=== PATIENT | female | born 1975 | race Caucasian/White ===

== ENCOUNTER 2017-03-16 15:03 | Inpatient (IN) | payer SELFPAY ==
[2017-03-16] MEDS ORDERED: TORADOL 30 MG VIAL IVP ONE (15:52)
[2017-03-16] MEDS ORDERED: ZOFRAN INJ 4 MG VIAL IVP ONE (15:52)
[2017-03-16] MEDS ORDERED: NS 1000 ML 1,000 ML IV ONE (15:52)
--- NOTE | 2017-03-16 15:54 | DR.GENAD ---
HPI - PCP Primary Care Physician: DINA - Complaint/Symptoms Chief Complaint Doctors Comments: ABSCESS UNDER LEFT AXILLA. ON CLINDAMYCIN AND DOXYCYLINE. NOW RUNNING FEVER, PATIENT HAVING CHILLS AND BODY ACHES. ALLERGIC TO BACTRIM. Chief Complaint:: " I HAVE THESE KNOTS COMING UP UNDER MY ARMS AND IT'S SPREADING!" Self Treatment fo Chief Complaint: CLINDAMYCIN - Nurses notes reviewed Nurses Notes Review: Yes - Source History Provided: Patient - Mode of Arrival Mode of Arrival: Ambulatory - Timing Onset of Chief Complaint: 03/08/17 Came on: Suddenly - Duration Duration: Constant Duration: Days - Severity Severity: Moderate PMH - PMH Past Medical History: Yes Past Medical History: Anemia, Hypertension Past Surgical History: Yes Surgical History: , Cholecystectomy, Hysterectomy Past Surgical History Comment: BACK SURGERY - Family History History of Family Medical Conditions: Yes Family Medical History: Diabetes Mellitus, [place], Coronary Artery Disease, Hypertension - Social History Does patient currently use any type of tobacco product: Yes Have you used tobacco products in the last 12 months: Yes Type of Tobacco Use: Cigarettes How many years tobacco product used: 4 Does any household member use tobacco: Yes Alcohol Use: Occasionally Do you use any recreational Drugs:: No Lives With: Family Lives Where: Home - infectious screening In the last 2 months have you had wt loss of >10#?: NO Have you had fever, night sweats or hemotysis?: No Have you traveled outside the country in the last 6 months?: No ROS - Review of Systems Constitutional: Chills, Fever, Weakness, Fatigue. negative: Diaphoresis, Loss of Appetite Eyes: No Symptoms Reported. negative: Eye Pain, Discharge ENTM: No Symptoms Reported. negative: Ear Pain, Nose Discharge, Nose Congestion , Throat Pain Respiratoy: Non-Productive Cough. negative: Short of Breath, Wheezing, Hemoptysis Cardiovascular: negative: Chest Pain Gastrointestinal/Abdominal: Abdominal Pain, Diarrhea, Nausea, Vomiting Neurological: Headache, Weakness, Dizziness Musculoskeletal: Muscle Pain Integumentary: Lesions (UNDER ARM PIT LT.), Lumps Hematologic/Lymphatic: No Symptoms Reported Endocrine: No Symptoms Reported All Other Systems: Reviewed and Negative PE - Vital Signs Vitals: Temperature 98.4 F Pulse Rate 110 Respiratory Rate 20 Blood Pressure [Right Arm] 139/99 Blood Pressure 123/87 O2 Sat by Pulse Oximetry 99 - General Limitations: No Limitations General Appearance: Alert - Head Head Exam: Normal Inspection - Eyes Eye exam: Normal Appearance - ENT ENT Exam: Normal External Ear Exam External Ear Exam: Normal External Inspection TM/Canal Exam: Bilateral Normal Nose Exam: Normal Nose Exam Mouth Exam: Normal Inspection Throat Exam: Normal Inspection - Neck Neck Exam: Trachea Midline - Chest Chest Inspection: Symmetric Chest Wall Rise - Respiratory Respiratory Exam: Normal Lung Sounds Bilat Respiratory Exam: Bilateral Clear to Auscultation - Cardiovascular Cardiovascular Exam: Regular Rate, Normal Rhythm, Normal Heart Sounds - Abdominal Exam Abdominal Exam: Normal Bowel Sounds, Soft. negative: Tenderness - Extremities Extremities Exam: Other (LT AXILLA WITH ABSCESSES THAT IS TENDER. REDNESS NOTED ALSO.) Course - Treatment Treatment: SEE ORDERS - Consultation Consultation Comments: DISCUSS PATIENT WITH DR. LEWIS. HE WILL ADMIT PATIENT. - Education/Counseling Education/Counseling: Patient, Family, Education Educated On: Treatment, Needs for Follow Up ROR - Labs Reviewed Laboratory Results Reviewed?: Yes Result Diagrams: 03/17/17 03:25 03/17/17 03:25 - Diagnosis Discharge Problem: Abscess Cellulitis Qualifiers: Site of cellulitis: extremity Site of cellulitis of extremity: axilla Laterality: left Qualified Code(s): L03.112 - Cellulitis of left axilla - Discharge Plan Disposition: ADMITTED INPATIENT Condition: Good - Follow ups/Referrals - Instructions
[2017-03-16] MEDS ORDERED: NS 1000 ML 1,000 ML ONE ×2 (16:30→18:22)
[2017-03-16] MEDS ORDERED: ZOFRAN INJ 4 MG VIAL ONE (16:30)
[2017-03-16] MEDS ORDERED: TORADOL 30 MG VIAL ONE (16:31)
[2017-03-16 16:35] LABS: BASOPHILS # (AUTO) 0.1 X10^3/uL (0.0-0.1); BASOPHILS % (AUTO) 0.7 % (0.2-1.0); EOSINOPHILS # (AUTO) 0.1 x10^3/uL (0.0-0.2); EOSINOPHILS % (AUTO) 0.7 % (0.9-2.9); HEMATOCRIT 32.5 % (36.0-47.0); HEMOGLOBIN 10.7 g/dL (12.0-16.0); LYMPHOCYTES # (AUTO) 2.6 X10^3/uL (1.3-2.9); LYMPHOCYTES % (AUTO) 25.5 % (21.0-51.0); MEAN CORPUSCULAR HEMOGLOBIN 22.3 pg (27.0-34.0); MEAN CORPUSCULAR HGB CONC 32.8 g/dL (33.0-35.0); MEAN CORPUSCULAR VOLUME 67.8 fL (80.0-100.0); MEAN PLATELET VOLUME 7.6 fL (7.4-11.0); MONOCYTES # (AUTO) 0.9 x10^3/uL (0.3-0.8); MONOCYTES % (AUTO) 8.9 % (0.0-13.0); NEUTROPHILS # (AUTO) 6.4 x10^3/uL (2.2-4.8); NEUTROPHILS % (AUTO) 64.2 % (42.0-75.0); PLATELET COUNT 387 X10^3/uL (150.0-450.0); RED CELL DISTRIBUTION WIDTH 18.3 % (11.6-16.5)
[2017-03-16 16:42] LABS: LACTIC ACID 1.5 mmol/L (0.4-2.0)
[2017-03-16 16:45] LABS: HYPOCHROMASIA 1+; MICROCYTOSIS 1+; PLATELET MORPHOLOGY COMMENT NORMAL (NORMAL)
[2017-03-16 17:27] LABS: ALANINE AMINOTRANSFERASE 21 Units/L (12-78); ALBUMIN 3.7 g/dL (3.4-5.0); ALKALINE PHOSPHATASE 82 Units/L (46-116); ASPARTATE AMINO TRANSFERASE 15 Units/L (15-37); BLOOD UREA NITROGEN 7 mg/dL (7-18); CALCIUM 9.7 mg/dL (8.5-10.1); CARBON DIOXIDE 25.6 mmol/L (21-32); CHLORIDE 89 mmol/L (98-107); CREATININE 0.75 mg/dL (0.55-1.02); TOTAL PROTEIN 7.9 g/dL (6.4-8.2); eGFR BLACK RACES > 60 (>60); eGFR NON BLACK RACES > 60 (>60)
[2017-03-16 17:33] LABS: SODIUM 123 mmol/L (136-145)
[2017-03-16] MEDS ORDERED: MORPHINE SULFATE INJ 4 MG IVP ONE (17:43)
[2017-03-16] MEDS ORDERED: MORPHINE SULFATE INJ 4 MG ONE (17:54)
[2017-03-16] MEDS ORDERED: MOTRIN TAB 600 MG PO PRN (18:57)
[2017-03-16] MEDS ORDERED: PHENERGAN TAB 25 MG PO PRN (18:57)
[2017-03-16] MEDS ORDERED: TORADOL 30 MG VIAL IVP PRN (19:01)
[2017-03-16] MEDS: VANCOMYCIN 1 GM PREMIX (ADDVANTAGE) 250 ML IV SCH (21:38)
[2017-03-16] MEDS: ZOSYN VIAL 3.375 GM 3.375 GM in NS 100 ML IV + SPIKE MINIBAG* 100 ML IV SCH (21:38)
[2017-03-16] MEDS: NICODERM PATCH 21 MG/24 HR TD SCH (22:31)
[2017-03-16] MEDS: NS + KCL 40 MEQ/L 1,000 ML IV SCH (23:40)
[2017-03-16] MEDS ORDERED: NS 1000 ML 1,000 ML IV SCH (23:45)
[2017-03-17] MEDS: MORPHINE SULFATE INJ 4 MG IVP PRN ×4 (00:12→23:39)
[2017-03-17] MEDS: ZOFRAN INJ 4 MG VIAL IVP PRN ×4 (00:13→23:39)
[2017-03-17] MEDS ORDERED: K-RIDER 10 MEQ/NS 100 ML 10 MEQ/100 ML BAG IV PRN (02:26)
[2017-03-17] MEDS ORDERED: POTASSIUM CHLORIDE LIQ 20 MEQ UDC PO PRN (02:26)
[2017-03-17] MEDS ORDERED: K-LYTE EFFERVESCENT PO PRN (02:26)
[2017-03-17] MEDS ORDERED: K-DUR TAB 20 MEQ PO PRN (02:26)
[2017-03-17 05:18] LABS: ALANINE AMINOTRANSFERASE 15 Units/L (12-78); ALBUMIN 2.8 g/dL (3.4-5.0); ALKALINE PHOSPHATASE 62 Units/L (46-116); ASPARTATE AMINO TRANSFERASE 11 Units/L (15-37); BLOOD UREA NITROGEN 6 mg/dL (7-18); CALCIUM 8.8 mg/dL (8.5-10.1); CHLORIDE 96 mmol/L (98-107); COR CA(FOR HYPOALB) 9.8 mg/dL (8.5-10.1); CREATININE 0.65 mg/dL (0.55-1.02); SODIUM 129 mmol/L (136-145); TOTAL PROTEIN 6.2 g/dL (6.4-8.2); eGFR BLACK RACES > 60 (>60); eGFR NON BLACK RACES > 60 (>60)
[2017-03-17 05:20] LABS: BASOPHILS % (AUTO) 0.7 % (0.2-1.0); EOSINOPHILS # (AUTO) 0.2 x10^3/uL (0.0-0.2); EOSINOPHILS % (AUTO) 2.8 % (0.9-2.9); HEMATOCRIT 27.5 % (36.0-47.0); HEMOGLOBIN 9.1 g/dL (12.0-16.0); LYMPHOCYTES # (AUTO) 2.4 X10^3/uL (1.3-2.9); LYMPHOCYTES % (AUTO) 38.5 % (21.0-51.0); MEAN CORPUSCULAR HEMOGLOBIN 22.7 pg (27.0-34.0); MEAN CORPUSCULAR HGB CONC 33.2 g/dL (33.0-35.0); MEAN CORPUSCULAR VOLUME 68.5 fL (80.0-100.0); MONOCYTES # (AUTO) 0.6 x10^3/uL (0.3-0.8); MONOCYTES % (AUTO) 10.3 % (0.0-13.0); NEUTROPHILS # (AUTO) 2.9 x10^3/uL (2.2-4.8); NEUTROPHILS % (AUTO) 47.7 % (42.0-75.0); PLATELET COUNT 288 X10^3/uL (150.0-450.0); RED BLOOD COUNT 4.02 X10^6/uL (3.5-5.4); RED CELL DISTRIBUTION WIDTH 18.7 % (11.6-16.5); WHITE BLOOD COUNT 6.1 X10^3/uL (3.6-10.0)
[2017-03-17] MEDS: ZOSYN VIAL 3.375 GM 3.375 GM in NS 100 ML IV + SPIKE MINIBAG* 100 ML IV SCH ×3 (05:23→22:22)
[2017-03-17 05:50] LABS: HYPOCHROMASIA 1+; PLATELET MORPHOLOGY COMMENT NORMAL (NORMAL)
[2017-03-17 05:51] LABS: MICROCYTOSIS 1+
[2017-03-17] MEDS: NICODERM PATCH 21 MG/24 HR TD SCH (09:23)
[2017-03-17] MEDS: VANCOMYCIN 1 GM PREMIX (ADDVANTAGE) 250 ML IV SCH ×2 (09:23→20:54)
[2017-03-17 10:00] VITALS: BMI 30.4
[2017-03-17] MEDS: NS + KCL 40 MEQ/L 1,000 ML IV SCH (18:27)
[2017-03-17] MEDS: VISTARIL PO PRN (20:53)
[2017-03-18] MEDS: NS 1000 ML 1,000 ML IV SCH ×3 (04:19→21:17)
[2017-03-18 05:21] LABS: BASOPHILS % (AUTO) 0.7 % (0.2-1.0); EOSINOPHILS # (AUTO) 0.1 x10^3/uL (0.0-0.2); HEMATOCRIT 26.4 % (36.0-47.0); HEMOGLOBIN 8.6 g/dL (12.0-16.0); LYMPHOCYTES # (AUTO) 1.8 X10^3/uL (1.3-2.9); LYMPHOCYTES % (AUTO) 40.8 % (21.0-51.0); MEAN CORPUSCULAR HEMOGLOBIN 22.6 pg (27.0-34.0); MEAN CORPUSCULAR HGB CONC 32.7 g/dL (33.0-35.0); MEAN CORPUSCULAR VOLUME 69.1 fL (80.0-100.0); MEAN PLATELET VOLUME 7.9 fL (7.4-11.0); MONOCYTES # (AUTO) 0.5 x10^3/uL (0.3-0.8); MONOCYTES % (AUTO) 10.3 % (0.0-13.0); NEUTROPHILS % (AUTO) 45.2 % (42.0-75.0); PLATELET COUNT 264 X10^3/uL (150.0-450.0); RED BLOOD COUNT 3.83 X10^6/uL (3.5-5.4); RED CELL DISTRIBUTION WIDTH 18.9 % (11.6-16.5); WHITE BLOOD COUNT 4.5 X10^3/uL (3.6-10.0)
[2017-03-18 05:23] LABS: ALANINE AMINOTRANSFERASE 15 Units/L (12-78); ALBUMIN 2.7 g/dL (3.4-5.0); ALKALINE PHOSPHATASE 56 Units/L (46-116); ASPARTATE AMINO TRANSFERASE 9 Units/L (15-37); BLOOD UREA NITROGEN 8 mg/dL (7-18); CALCIUM 8.9 mg/dL (8.5-10.1); CARBON DIOXIDE 29.5 mmol/L (21-32); CHLORIDE 106 mmol/L (98-107); COR CA(FOR HYPOALB) 9.9 mg/dL (8.5-10.1); SODIUM 138 mmol/L (136-145); TOTAL PROTEIN 6.2 g/dL (6.4-8.2); eGFR BLACK RACES > 60 (>60); eGFR NON BLACK RACES > 60 (>60)
[2017-03-18] MEDS: ZOSYN VIAL 3.375 GM 3.375 GM in NS 100 ML IV + SPIKE MINIBAG* 100 ML IV SCH (05:50)
[2017-03-18] MEDS: MORPHINE SULFATE INJ 4 MG IVP PRN ×3 (05:54→18:03)
[2017-03-18 06:48] LABS: HYPOCHROMASIA 1+; MICROCYTOSIS 1+; PLATELET MORPHOLOGY COMMENT NORMAL (NORMAL)
[2017-03-18 08:47] LABS: CREATININE 0.8 mg/dL (0.55-1.02); VANCOMYCIN,TROUGH 6.6 ug/mL (15-20)
[2017-03-18] MEDS: VANCOMYCIN 1 GM PREMIX (ADDVANTAGE) 250 ML IV SCH ×3 (09:09→21:14)
[2017-03-18] MEDS: NICODERM PATCH 21 MG/24 HR TD SCH (09:09)
[2017-03-18] MEDS: VISTARIL PO PRN ×2 (09:12→21:17)
[2017-03-18] MEDS: ZOFRAN INJ 4 MG VIAL IVP PRN (11:54)
[2017-03-18] MEDS: XANAX PO PRN (14:06)
[2017-03-18 18:03] LABS: CRYPTOSPORIDIUM PARVUM ANTIGEN NEGATIVE (NEGATIVE); GIARDIA LAMBLIA ANTIGEN NEGATIVE (NEGATIVE)
[2017-03-19] MEDS ORDERED: ULTRAM PO PRN (00:34)
[2017-03-19] MEDS: MORPHINE SULFATE INJ 4 MG IVP PRN ×3 (00:41→15:11)
[2017-03-19] MEDS: NS 1000 ML 1,000 ML IV SCH (05:21)
[2017-03-19] MEDS: XANAX PO PRN (05:21)
[2017-03-19] MEDS: NEURONTIN TAB 600 MG PO SCH ×2 (05:21→14:12)
[2017-03-19] MEDS: VANCOMYCIN 1 GM PREMIX (ADDVANTAGE) 250 ML IV SCH ×2 (05:21→14:13)
[2017-03-19 05:34] LABS: BASOPHILS % (AUTO) 0.8 % (0.2-1.0); EOSINOPHILS # (AUTO) 0.1 x10^3/uL (0.0-0.2); EOSINOPHILS % (AUTO) 2.5 % (0.9-2.9); HEMATOCRIT 27.4 % (36.0-47.0); HEMOGLOBIN 8.9 g/dL (12.0-16.0); LYMPHOCYTES # (AUTO) 1.8 X10^3/uL (1.3-2.9); LYMPHOCYTES % (AUTO) 42.9 % (21.0-51.0); MEAN CORPUSCULAR HEMOGLOBIN 22.5 pg (27.0-34.0); MEAN CORPUSCULAR HGB CONC 32.5 g/dL (33.0-35.0); MEAN CORPUSCULAR VOLUME 69.3 fL (80.0-100.0); MEAN PLATELET VOLUME 7.8 fL (7.4-11.0); MONOCYTES # (AUTO) 0.4 x10^3/uL (0.3-0.8); MONOCYTES % (AUTO) 8.8 % (0.0-13.0); NEUTROPHILS # (AUTO) 1.9 x10^3/uL (2.2-4.8); PLATELET COUNT 286 X10^3/uL (150.0-450.0); RED BLOOD COUNT 3.96 X10^6/uL (3.5-5.4); RED CELL DISTRIBUTION WIDTH 18.5 % (11.6-16.5); WHITE BLOOD COUNT 4.3 X10^3/uL (3.6-10.0)
[2017-03-19 06:23] LABS: ALANINE AMINOTRANSFERASE 18 Units/L (12-78); ALBUMIN 2.8 g/dL (3.4-5.0); ALKALINE PHOSPHATASE 55 Units/L (46-116); ASPARTATE AMINO TRANSFERASE 13 Units/L (15-37); BLOOD UREA NITROGEN 5 mg/dL (7-18); CARBON DIOXIDE 28.2 mmol/L (21-32); CHLORIDE 105 mmol/L (98-107); SODIUM 138 mmol/L (136-145); TOTAL PROTEIN 6.3 g/dL (6.4-8.2); eGFR BLACK RACES > 60 (>60); eGFR NON BLACK RACES > 60 (>60)
[2017-03-19 06:45] LABS: HYPOCHROMASIA 1+; MICROCYTOSIS 1+; PLATELET MORPHOLOGY COMMENT NORMAL (NORMAL)
[2017-03-19] MEDS ORDERED: STERILE WATER IRRIGATION IR ONE (08:38)
[2017-03-19] MEDS ORDERED: ZESTRIL TAB 20 MG ONE (08:42)
[2017-03-19] MEDS: NICODERM PATCH 21 MG/24 HR TD SCH (08:51)
[2017-03-19] MEDS ORDERED: ZESTRIL TAB 20 MG PO SCH (09:00)
[2017-03-19] MEDS ORDERED: PATIENT'S HOME MEDICATION (Lisinopril/Hydrochlorothiazide [Lisinopril-Hctz 20-12.5 Mg Tab] PO SCH (09:00)
[2017-03-19] MEDS ORDERED: LYRICA CAP 150 MG PO SCH (09:00)
[2017-03-19] MEDS ORDERED: HYDROCHLOROTHIAZIDE 12.5 MG CAP PO SCH (09:00)
[2017-03-19] MEDS ORDERED: NORCO 5/325 MG TAB PO PRN (09:02)
[2017-03-19] MEDS: ZOFRAN INJ 4 MG VIAL IVP PRN ×2 (09:15→15:11)
[2017-03-19 13:38] VITALS: BP 135/83
[2017-03-19 14:53] LABS: CREATININE 0.72 mg/dL (0.55-1.02); VANCOMYCIN,TROUGH 12.3 ug/mL (15-20)
--- NOTE | 2017-03-20 08:50 | OR.GENERIC ---
Post-Op Note Generic - Post-Op Note Operative Report: Date of Operation: March 19, 2017 Pre-Operative Diagnosis: Left axillary abscess. Post-Operative Diagnosis: Left axillary abscess. Procedure: Incision and drainage of left axillary abscess (simple). Surgeon: Miguel Healy MD Anesthesia: Local. Specimen: None. Estimated blood loss: Minimal Complications: None Summary: The patient is a 41 year old female who presented with a left axillary abscess. The patient was admitted to the hospital for IV antibiotics and surgery consulted. The patient was offered incision and drainage. The risk and benefits of the procedure including difficulty with anesthesia, bleeding, infection, scar formation, delayed healing, as well as recurrence were discussed with the patient. The patient understood these risks and requested the procedure. On March 19, 2017, the patient was positioned in the hospital room. A time out was performed verifying the patient and the procedure. The left axillae was prepped with betadine and draped in the usual fashion. Local anesthetic was infiltrated around the areas of induration (three regions). A small core of skin was removed sharply at each site. The abscess cavities were entered bluntly. Minimal purulent drainage was seen. All loculations were disrupted bluntly. Next, the wounds were packed with Iodoform. A sterile dressing was placed. The patient tolerated the procedure. There were no complications. All counts were correct.
== END 2017-03-19 16:15 | disposition home or self-care (01) | DRG 603 ==
LOC: ER 15:17 → MED/SURG 18:55
PROVIDERS: ADMIT Internal Medicine; ATTEND Internal Medicine
PROC: 0H9CXZZ Drainage of Left Upper Arm Skin, External Approach (ICD-10-PCS; principal; 2017-03-19)
DX: L02.412 Cutaneous abscess of left axilla (principal); B95.62 Methicillin resistant Staphylococcus aureus infection as the cause of diseases classified elsewhere; E87.0 Hyperosmolality and hypernatremia; E87.5 Hyperkalemia; F41.9 Anxiety disorder, unspecified; R10.13 Epigastric pain; R19.7 Diarrhea, unspecified
CPT/HCPCS: 36415; 80053; 80202; 82270; 82565; 83605; 83735; 84132; 84295; 85025; 86140; 87040; 87045; 87070; 87077; 87186; 87205; 87328; 87329; 87336; 87427; 87493; 87899; 96365; 96367; 96374; 96375; 99284; A4217; A4222; Q0169; Q0177; J1885; J2270; J2405; J2543; J3370

== ENCOUNTER 2017-04-14 14:00 | Emergency (ER) | payer SELFPAY ==
[2017-04-14 14:08] VITALS: BP 155/101; BMI 30.7
[2017-04-14] MEDS ORDERED: ZOFRAN INJ 4 MG VIAL IVP ONE (14:36)
[2017-04-14] MEDS ORDERED: NS 1000 ML 1,000 ML IV ONE (14:36)
[2017-04-14] MEDS ORDERED: CLEOCIN 600 MG IV PREMIX 600 MG/50 ML BAG IV ONE (14:37)
[2017-04-14] MEDS ORDERED: CLEOCIN 300 MG IV PREMIX 300 MG/50 ML BAG IV ONE (14:37)
[2017-04-14] MEDS ORDERED: CLEOCIN 300 MG IV PREMIX 600 MG/100 ML BAG IV ONE (14:38)
[2017-04-14] MEDS ORDERED: CLEOCIN VIAL 600 MG 300 MG in D5W 50 ML IV 50 ML IV ONE (14:39)
[2017-04-14] MEDS ORDERED: TORADOL 30 MG VIAL IVP ONE (14:41)
--- NOTE | 2017-04-14 14:42 | DR.GENAD ---
HPI - PCP Primary Care Physician: REBECCA ARCADIA - Complaint/Symptoms Chief Complaint:: PT WAS ADMITTED 3 WEEKS AGO FOR MRSA ,,, PT PRESENTS WITH A ? ABCESS TO HER LEFT POSTERIOR THIGH... AND PAIN THAT RADIATES DOWN HER LEG UP TO HER BACK.. PT STATES THERE I AN AREA THE SIZE OF A BASEBALL... BUT, U CANT SEE IT ONLY FEEL IT.'.. Self Treatment fo Chief Complaint: PT STATES IT STARTED OUT SMALL AND IT GOT BIGGER.. - Source History Provided: Patient - Mode of Arrival Mode of Arrival: Ambulatory - Timing Onset of Chief Complaint: 04/11/17 PMH - PMH Past Medical History: Yes Past Medical History: Anemia, Hypertension Past Medical History Comment: FIBRO, Past Surgical History: Yes Surgical History: , Cholecystectomy, Hysterectomy Past Surgical History Comment: GASTRIC BYPASS - Family History History of Family Medical Conditions: Yes Family Medical History: Diabetes Mellitus, [place], Coronary Artery Disease, Hypertension - Social History Does patient currently use any type of tobacco product: Yes Have you used tobacco products in the last 12 months: Yes Type of Tobacco Use: Cigarettes How many years tobacco product used: 4 Does any household member use tobacco: No Alcohol Use: None Do you use any recreational Drugs:: No Lives With: Alone, Family - infectious screening In the last 2 months have you had wt loss of >10#?: NO Have you had fever, night sweats or hemotysis?: No Have you traveled outside the country in the last 6 months?: No Isolation: Standard ROS - Review of Systems Constitutional: negative: Diaphoresis Eyes: No Symptoms Reported ENTM: No Symptoms Reported Respiratoy: No Symptoms Reported Cardiovascular: No Symptoms Reported Gastrointestinal/Abdominal: No Symptoms Reported Genitourinary: No Symptoms Reported Neurological: No Symptoms Reported Musculoskeletal: No Symptoms Reported Integumentary: Change in Color (Left lateral gluteal area centrall with a punctum central core~3cm and a large superficial area of erythema) Hematologic/Lymphatic: No Symptoms Reported Endocrine: No Symptoms Reported Psychiatric: No Symptoms Reported All Other Systems: Reviewed and Negative PE - Vital Signs Vitals: Temperature 99.9 F Pulse Rate 102 Respiratory Rate 22 Blood Pressure [Left Arm] 152/100 Blood Pressure [Right Arm] 135/83 Blood Pressure 155/101 O2 Sat by Pulse Oximetry 99 - General Limitations: No Limitations General Appearance: Alert, In No Apparent Distress - Head Head Exam: Normal Inspection, Atraumatic - Eyes Eye exam: Normal Appearance, PERRL, EOMI - ENT ENT Exam: Normal Exam External Ear Exam: Normal External Inspection TM/Canal Exam: Bilateral Normal Nose Exam: Normal Nose Exam Mouth Exam: Normal Inspection Throat Exam: Normal Inspection - Neck Neck Exam: Normal Inspection, Full ROM - Chest Chest Inspection: Normal Inspection - Respiratory Respiratory Exam: Normal Lung Sounds Bilat Respiratory Exam: Bilateral Clear to Auscultation - Cardiovascular Cardiovascular Exam: Regular Rate - Abdominal Exam Abdominal Exam: Normal Inspection Abdominal Tenderness: RLQ - Extremities Extremities Exam: Tenderness (Left lateral hip with a large area oc superficial cellulitis and a central core of 3cm firm, tender) - Back Back Exam: Normal Inspection Course - Treatment Treatment: Parenteral clindymycin 900mg - Reevaluation 1st: Improved ROR - Labs Reviewed Laboratory Results Reviewed?: Yes (Hypokalemia,Hyponatremia) Result Diagrams: 04/14/17 14:47 04/14/17 14:47 Laboratory: WBC 11.0 X10^3/uL (3.6-10.0) H 04/14/17 14:47 RBC 4.45 X10^6/uL (3.5-5.4) 04/14/17 14:47 Hgb 9.8 g/dL (12.0-16.0) L 04/14/17 14:47 Hct 30.5 % (36.0-47.0) L 04/14/17 14:47 MCV 68.6 fL (80.0-100.0) L 04/14/17 14:47 MCH 22.1 pg (27.0-34.0) L 04/14/17 14:47 MCHC 32.2 g/dL (33.0-35.0) L 04/14/17 14:47 RDW 17.3 % (11.6-16.5) H 04/14/17 14:47 Plt Count 321 X10^3/uL (150.0-450.0) 04/14/17 14:47 Plt Count Comment Adequate (ADEQUATE) 04/14/17 14:47 MPV 7.8 fL (7.4-11.0) 04/14/17 14:47 Neut % 78.0 % (42.0-75.0) H 04/14/17 14:47 Lymph % 13.2 % (21.0-51.0) L 04/14/17 14:47 Blair % 7.8 % (0.0-13.0) 04/14/17 14:47 Eos % 0.6 % (0.9-2.9) L 04/14/17 14:47 Baso % 0.4 % (0.2-1.0) 04/14/17 14:47 Neut # 8.6 x10^3/uL (2.2-4.8) H 04/14/17 14:47 Lymph # 1.5 X10^3/uL (1.3-2.9) 04/14/17 14:47 Blair # 0.9 x10^3/uL (0.3-0.8) H 04/14/17 14:47 Eos # 0.1 x10^3/uL (0.0-0.2) 04/14/17 14:47 Baso # 0.0 X10^3/uL (0.0-0.1) 04/14/17 14:47 Absolute Nucleated RBC 0.0 /100WBC 04/14/17 14:47 Plt Morphology Comment Normal (NORMAL) 04/14/17 14:47 RBC Morphology Abnormal (NORMAL) A 04/14/17 14:47 Hypochromasia 1+ A 04/14/17 14:47 Microcytosis 1+ A 04/14/17 14:47 Sodium 133 mmol/L (136-145) L 04/14/17 14:47 Corrected Sodium TNP 04/14/17 14:47 Potassium 3.0 mmol/L (3.5-5.1) L* 04/14/17 14:47 Chloride 99 mmol/L (98-107) 04/14/17 14:47 Carbon Dioxide 26.6 mmol/L (21-32) 04/14/17 14:47 BUN 6 mg/dL (7-18) L 04/14/17 14:47 Creatinine 0.78 mg/dL (0.55-1.02) 04/14/17 14:47 Est GFR (MDRD) Af Amer > 60 (>60) 04/14/17 14:47 Est GFR (MDRD) Non-Af > 60 (>60) 04/14/17 14:47 Glucose 109 mg/dL (65-99) H 04/14/17 14:47 Calcium 9.6 mg/dL (8.5-10.1) 04/14/17 14:47 C-Reactive Protein 35.40 mg/L (0-3.0) H 04/14/17 14:47 - Diagnosis Discharge Problem: Cellulitis of hip, left - Discharge Plan Condition: Stable - Follow ups/Referrals Follow ups/Referrals: NFD,None [Primary Care Provider] - 3 days - Instructions
[2017-04-14 15:04] LABS: BLOOD UREA NITROGEN 6 mg/dL (7-18); CALCIUM 9.6 mg/dL (8.5-10.1); CARBON DIOXIDE 26.6 mmol/L (21-32); CHLORIDE 99 mmol/L (98-107); CREATININE 0.78 mg/dL (0.55-1.02); SODIUM 133 mmol/L (136-145); eGFR BLACK RACES > 60 (>60); eGFR NON BLACK RACES > 60 (>60)
[2017-04-14] MEDS ORDERED: TORADOL 30 MG VIAL ONE (15:05)
[2017-04-14] MEDS ORDERED: NS 1000 ML 1,000 ML ONE ×2 (15:05→15:06)
[2017-04-14] MEDS ORDERED: ZOFRAN INJ 4 MG VIAL ONE (15:05)
[2017-04-14 15:07] LABS: BASOPHILS % (AUTO) 0.4 % (0.2-1.0); EOSINOPHILS # (AUTO) 0.1 x10^3/uL (0.0-0.2); EOSINOPHILS % (AUTO) 0.6 % (0.9-2.9); HEMATOCRIT 30.5 % (36.0-47.0); HEMOGLOBIN 9.8 g/dL (12.0-16.0); LYMPHOCYTES # (AUTO) 1.5 X10^3/uL (1.3-2.9); LYMPHOCYTES % (AUTO) 13.2 % (21.0-51.0); MEAN CORPUSCULAR HEMOGLOBIN 22.1 pg (27.0-34.0); MEAN CORPUSCULAR HGB CONC 32.2 g/dL (33.0-35.0); MEAN CORPUSCULAR VOLUME 68.6 fL (80.0-100.0); MEAN PLATELET VOLUME 7.8 fL (7.4-11.0); MONOCYTES # (AUTO) 0.9 x10^3/uL (0.3-0.8); MONOCYTES % (AUTO) 7.8 % (0.0-13.0); NEUTROPHILS # (AUTO) 8.6 x10^3/uL (2.2-4.8); PLATELET COUNT 321 X10^3/uL (150.0-450.0); RED BLOOD COUNT 4.45 X10^6/uL (3.5-5.4); RED CELL DISTRIBUTION WIDTH 17.3 % (11.6-16.5)
[2017-04-14] MEDS ORDERED: K-LYTE EFFERVESCENT PO ONE (15:09)
[2017-04-14 15:33] LABS: HYPOCHROMASIA 1+; MICROCYTOSIS 1+; PLATELET MORPHOLOGY COMMENT NORMAL (NORMAL)
[2017-04-14] MEDS ORDERED: PERCOCET TAB 5/325 MG PO STA (16:00)
[2017-04-14] MEDS ORDERED: PERCOCET TAB 5/325 MG ONE (16:03)
[2017-04-14] MEDS ORDERED: K-LYTE EFFERVESCENT ONE (16:05)
== END 2017-04-14 16:19 | disposition home or self-care (01) ==
LOC: ER 14:12
DX: L03.116 Cellulitis of left lower limb (principal)
CPT/HCPCS: 36415; 80048; 85025; 86140; 87040; 96365; 96374; 96375; 99282; 99283; A4222; S0077; J1885; J2405

== ENCOUNTER 2017-04-16 15:41 | Emergency (ER) | payer SELFPAY ==
[2017-04-16 15:46] VITALS: BP 136/90; BMI 30.7
[2017-04-16] MEDS ORDERED: XYLOCAINE 2 % (PLAIN) ONE (16:39)
--- NOTE | 2017-04-16 16:54 | DR.GENAD ---
HPI - PCP Primary Care Physician: CARMELA - HPI Comment HPI Comment: HISTORY BELOW. - Complaint/Symptoms Chief Complaint Doctors Comments: ABSCESS LT BUTTOCKS. PATIENT ON CLINDAMYCIN. SLIGHT DRAINAGE FROM ABSCESS. PAIN WORSE TODAY. NO FEVER. HEADACHE HAVE ALSO STARTED. Chief Complaint:: PATIENT HAS BEEN NAUSEOUS AND HEADACHE DUE TO A ABCESS ON HER LEFT BUTTOCKS. PATIENT STATED THAT IT IS DRAINING SINCE LAST NIGHT SOMETIME. - Nurses notes reviewed Nurses Notes Review: Yes - Source History Provided: Patient - Mode of Arrival Mode of Arrival: Ambulatory - Timing Onset of Chief Complaint: 04/15/17 Came on: Gradually - Duration Duration: Constant Duration: Days PMH - PMH Past Medical History: Yes Past Medical History: Anemia, Anxiety, Hypertension Past Surgical History: Yes Surgical History: , Cholecystectomy, Hysterectomy, Ortho Surgery Past Surgical History Comment: GASTRIC BYPASS - Family History History of Family Medical Conditions: Yes Family Medical History: Diabetes Mellitus, [place], Coronary Artery Disease, Hypertension - Social History Does patient currently use any type of tobacco product: Yes Have you used tobacco products in the last 12 months: Yes Type of Tobacco Use: Cigarettes Does any household member use tobacco: No Alcohol Use: None Do you use any recreational Drugs:: No Lives With: Family Lives Where: Home - infectious screening In the last 2 months have you had wt loss of >10#?: NO Have you had fever, night sweats or hemotysis?: No Have you traveled outside the country in the last 6 months?: No Isolation: Standard ROS - Review of Systems Constitutional: No Symptoms Reported Eyes: No Symptoms Reported ENTM: No Symptoms Reported Respiratoy: No Symptoms Reported Cardiovascular: No Symptoms Reported Gastrointestinal/Abdominal: No Symptoms Reported Genitourinary: No Symptoms Reported Neurological: Headache Musculoskeletal: No Symptoms Reported Integumentary: Other (ABSCESS LT BUTTOCK) Hematologic/Lymphatic: No Symptoms Reported Endocrine: No Symptoms Reported All Other Systems: Reviewed and Negative PE - Vital Signs Vitals: Temperature 98.9 F Pulse Rate 110 Respiratory Rate 20 Blood Pressure [Left Arm] 152/100 Blood Pressure [Right Arm] 135/83 Blood Pressure 136/90 O2 Sat by Pulse Oximetry 98 - General Limitations: No Limitations General Appearance: Alert - Head Head Exam: Normal Inspection - Eyes Eye exam: Normal Appearance - ENT ENT Exam: Normal External Ear Exam External Ear Exam: Normal External Inspection TM/Canal Exam: Bilateral Normal Nose Exam: Normal Nose Exam Mouth Exam: Normal Inspection Throat Exam: Normal Inspection - Neck Neck Exam: Normal Inspection - Chest Chest Inspection: Symmetric Chest Wall Rise - Respiratory Respiratory Exam: Normal Lung Sounds Bilat Respiratory Exam: Bilateral Clear to Auscultation - Cardiovascular Cardiovascular Exam: Regular Rate, Normal Rhythm, Normal Heart Sounds - Abdominal Exam Abdominal Exam: Normal Inspection - Extremities Extremities Exam: Other (ABSCESS LEFT BUTTOCKS) - Back Back Exam: Normal Inspection - Neurologic Neurological Exam: Alert, Oriented X3 - Skin Skin Exam: Erythema (ABSCESS LEFT BUTTOCKS) MDM - Differential Diagnosis Differential Diagnosis: ABSCESS, CELLULITIS. Course - Treatment Treatment: SEE ORDERS. - Education/Counseling Education/Counseling: Patient, Education Educated On: Treatment, Diagnosis, Needs for Follow Up ROR - Labs Reviewed Laboratory Results Reviewed?: Yes Result Diagrams: 04/16/17 17:00 04/16/17 17:00 Laboratory: 04/16/17 17:39 Buttock Gram Stain - Final 04/16/17 17:39 Buttock Wound Culture - Final Methicillin Resis Staph Aureus WBC 8.0 X10^3/uL (3.6-10.0) 04/16/17 17:00 RBC 4.26 X10^6/uL (3.5-5.4) 04/16/17 17:00 Hgb 9.5 g/dL (12.0-16.0) L 04/16/17 17:00 Hct 29.2 % (36.0-47.0) L 04/16/17 17:00 MCV 68.5 fL (80.0-100.0) L 04/16/17 17:00 MCH 22.2 pg (27.0-34.0) L 04/16/17 17:00 MCHC 32.4 g/dL (33.0-35.0) L 04/16/17 17:00 RDW 17.3 % (11.6-16.5) H 04/16/17 17:00 Plt Count 332 X10^3/uL (150.0-450.0) 04/16/17 17:00 Plt Count Comment Adequate (ADEQUATE) 04/16/17 17:00 MPV 8.0 fL (7.4-11.0) 04/16/17 17:00 Neut % 69.9 % (42.0-75.0) 04/16/17 17:00 Lymph % 20.3 % (21.0-51.0) L 04/16/17 17:00 Brooke % 8.0 % (0.0-13.0) 04/16/17 17:00 Eos % 1.3 % (0.9-2.9) 04/16/17 17:00 Baso % 0.5 % (0.2-1.0) 04/16/17 17:00 Neut # 5.6 x10^3/uL (2.2-4.8) H 04/16/17 17:00 Lymph # 1.6 X10^3/uL (1.3-2.9) 04/16/17 17:00 Brooke # 0.6 x10^3/uL (0.3-0.8) 04/16/17 17:00 Eos # 0.1 x10^3/uL (0.0-0.2) 04/16/17 17:00 Baso # 0.0 X10^3/uL (0.0-0.1) 04/16/17 17:00 Absolute Nucleated RBC 0.0 /100WBC 04/16/17 17:00 Plt Morphology Comment Normal (NORMAL) 04/16/17 17:00 RBC Morphology Abnormal (NORMAL) A 04/16/17 17:00 Hypochromasia 1+ A 04/16/17 17:00 Microcytosis 1+ A 04/16/17 17:00 Sodium 132 mmol/L (136-145) L 04/16/17 17:00 Corrected Sodium TNP 04/16/17 17:00 Potassium 3.7 mmol/L (3.5-5.1) 04/16/17 17:00 Chloride 100 mmol/L (98-107) 04/16/17 17:00 Carbon Dioxide 26.1 mmol/L (21-32) 04/16/17 17:00 BUN 9 mg/dL (7-18) 04/16/17 17:00 Creatinine 0.70 mg/dL (0.55-1.02) 04/16/17 17:00 Est GFR (MDRD) Af Amer > 60 (>60) 04/16/17 17:00 Est GFR (MDRD) Non-Af > 60 (>60) 04/16/17 17:00 Glucose 100 mg/dL (65-99) H 04/16/17 17:00 Calcium 9.4 mg/dL (8.5-10.1) 04/16/17 17:00 Corrected Calcium 10.1 mg/dL (8.5-10.1) 04/16/17 17:00 Total Bilirubin 0.20 mg/dL (0.2-1.0) 04/16/17 17:00 AST 9 Units/L (15-37) L 04/16/17 17:00 ALT 15 Units/L (12-78) 04/16/17 17:00 Alkaline Phosphatase 76 Units/L (46-116) 04/16/17 17:00 Total Protein 7.4 g/dL (6.4-8.2) 04/16/17 17:00 Albumin 3.1 g/dL (3.4-5.0) L 04/16/17 17:00 Globulin 4.3 g/dL (2.5-4.5) 04/16/17 17:00 Albumin/Globulin Ratio 0.7 Ratio (1.1-2.1) L 04/16/17 17:00 Procedures - Incision and Drainage Blade Size: 11 I & D Procedure: betadine prep, sterile dressing applied Progress: I&D DONE. NO PUS DRAIN. DRESSING APPLIED AFTER CULTURE OBTAINED. - Diagnosis Discharge Problem: Abscess Cellulitis Qualifiers: Site of cellulitis: buttock Qualified Code(s): L03.317 - Cellulitis of buttock - Discharge Plan Disposition: 01 HOME, SELF-CARE Condition: Stable Prescriptions: Doxycycline Monohydrate 100 mg PO BID #20 tablet - Follow ups/Referrals Follow ups/Referrals: MDMisc [Primary Care Provider] - 3 days - Instructions Instructions: Abscess, [id number], Cellulitis, Adult, [id number] Additional Instructions: RETURN TO ED IF WORSE.
[2017-04-16] MEDS ORDERED: ZOFRAN INJ 4 MG VIAL IM ONE (16:57)
[2017-04-16] MEDS ORDERED: TORADOL 60 MG VIAL IM ONE (16:57)
[2017-04-16] MEDS ORDERED: ZOFRAN INJ 4 MG VIAL ONE (16:59)
[2017-04-16] MEDS ORDERED: TORADOL 60 MG VIAL ONE (16:59)
[2017-04-16 17:17] LABS: BASOPHILS % (AUTO) 0.5 % (0.2-1.0); EOSINOPHILS # (AUTO) 0.1 x10^3/uL (0.0-0.2); EOSINOPHILS % (AUTO) 1.3 % (0.9-2.9); HEMATOCRIT 29.2 % (36.0-47.0); HEMOGLOBIN 9.5 g/dL (12.0-16.0); LYMPHOCYTES # (AUTO) 1.6 X10^3/uL (1.3-2.9); LYMPHOCYTES % (AUTO) 20.3 % (21.0-51.0); MEAN CORPUSCULAR HEMOGLOBIN 22.2 pg (27.0-34.0); MEAN CORPUSCULAR HGB CONC 32.4 g/dL (33.0-35.0); MEAN CORPUSCULAR VOLUME 68.5 fL (80.0-100.0); MONOCYTES # (AUTO) 0.6 x10^3/uL (0.3-0.8); NEUTROPHILS # (AUTO) 5.6 x10^3/uL (2.2-4.8); NEUTROPHILS % (AUTO) 69.9 % (42.0-75.0); PLATELET COUNT 332 X10^3/uL (150.0-450.0); RED BLOOD COUNT 4.26 X10^6/uL (3.5-5.4); RED CELL DISTRIBUTION WIDTH 17.3 % (11.6-16.5)
[2017-04-16 17:24] LABS: ALANINE AMINOTRANSFERASE 15 Units/L (12-78); ALBUMIN 3.1 g/dL (3.4-5.0); ALKALINE PHOSPHATASE 76 Units/L (46-116); ASPARTATE AMINO TRANSFERASE 9 Units/L (15-37); BLOOD UREA NITROGEN 9 mg/dL (7-18); CALCIUM 9.4 mg/dL (8.5-10.1); CARBON DIOXIDE 26.1 mmol/L (21-32); CHLORIDE 100 mmol/L (98-107); COR CA(FOR HYPOALB) 10.1 mg/dL (8.5-10.1); SODIUM 132 mmol/L (136-145); TOTAL PROTEIN 7.4 g/dL (6.4-8.2); eGFR BLACK RACES > 60 (>60); eGFR NON BLACK RACES > 60 (>60)
[2017-04-16 17:26] LABS: HYPOCHROMASIA 1+; MICROCYTOSIS 1+; PLATELET MORPHOLOGY COMMENT NORMAL (NORMAL)
== END 2017-04-16 17:43 | disposition home or self-care (01) ==
LOC: ER 15:58
PROC: 0Y913ZZ Drainage of Left Buttock, Percutaneous Approach (ICD-10-PCS; principal; 2017-04-16)
DX: L02.31 Cutaneous abscess of buttock (principal); L03.317 Cellulitis of buttock
CPT/HCPCS: 10060; 36415; 80053; 85025; 87070; 87077; 87186; 87205; 96372; 99282; J1885; J2001; J2405